=== PATIENT | male | born 1950 | race Caucasian/White ===

== ENCOUNTER 2019-07-30 15:14 | Emergency (ER) | payer MEDICARE, OTHER, SELFPAY ==
[2019-07-30] VITALS (49 sets, daily range): BP systolic 115–142; BP diastolic 48–86; PULSE 56–85; RESP 9–20; TEMP 37.6; O2SAT 79–100
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
[2019-07-30 16:04] LABS: Abs Immature Grans 0.04 k/cumm (0.0-0.09); Absolute Basophil Count 0.01 k/cumm (0.0-0.2); Absolute Eosinophil Count 0.09 k/cumm (0.0-0.7); Absolute Lymphocyte Count 1.13 k/cumm (1.2-3.4); Absolute Monocyte Count 0.45 k/cumm (0.11-0.7); Absolute Neutrophil Count 7.41 k/cumm (1.2-6.7); Basophils % 0.1; HCT 45.4 % (40.0-50.0); HGB 15.8 g/dL (13.5-17.5); Immature Grans % 0.4; Lymphocytes % 12.4; Mean Corp. HGB Concentration 34.8 g/dL (32.0-36.0); Mean Corpuscular Hemoglobin 29.9 pg (27.0-33.0); Mean Platelet Volume 9.9 fL (8.0-11.0); Monocytes % 4.9; Neutrophils % 81.2; Platelet Count 178 x1000/uL (130-400); RBC 5.28 m/cumm (4.50-6.00); White Blood Cell Count 9.13 k/cumm (4.4-10.8)
--- NOTE | 2019-07-30 16:12 | DI.CT_ITS ---
EXAM: CT HEAD CERVICAL SPINE WO CLINICAL HISTORY: trauma, distracting injury. TECHNIQUE: Multiple contiguous axial images of the head and neck were obtained. COMPARISON: HEAD WITHOUT CONTRAST from 04/29/2012 FINDINGS: Ventricles and sulci are consistent with the patient's age. No acute intracranial hemorrhage, midline shift, or mass effect is present. The ventricles are intact. The basilar cisterns are patent. The visualized paranasal sinuses are clear. The mastoid air cells are well pneumatized. The calvarium is intact. There are no acute fractures or subluxations in the cervical spine. The odontoid is intact. The lat eral masses are well aligned. There are degenerative changes present throughout the spine. The prev ertebral soft tissues are unremarkable. IMPRESSION: No acute intracranial process. No acute fracture or subluxation in the cervical spine.
[2019-07-30 16:16] LABS: Prothrombin Time 9.9 sec (9.3-11.0)
[2019-07-30 16:18] LABS: ALT 29 U/L (16-63); AST 20 U/L (15-37); Albumin 4.1 g/dL (3.4-5.0); Alkaline Phosphatase 115 U/L (46-116); Anion Gap 5.3 mmol/L (3-11); BUN 14 mg/dL (7-18); Bilirubin, Total 0.8 mg/dL (0.2-1.0); CO2 29.7 mmol/L (21.0-32.0); CREATININE 0.99 mg/dL (0.70-1.30); Calcium 8.6 mg/dL (8.5-10.1); Chloride 106 mmol/L (98-107); Glucose 108 mg/dL (70-100); Potassium 4.1 mmol/L (3.5-5.1); Sodium 141 mmol/L (136-145); Total Protein 7.9 g/dL (6.4-8.2)
[2019-07-30] MEDS: Omnipaque 350 MG/ML 100 ML BTL IJ (16:20)
--- NOTE | 2019-07-30 16:22 | DI.CT_ITS ---
EXAM: CT CHEST/ABD/PEL W CLINICAL HISTORY: trauma, left lower lateral rib and left abd pain. TECHNIQUE: Multiple contiguous axial images of the chest abdomen and pelvis were obtained. Thoracic and lumbar reconstructions were also performed. COMPARISON: No exams were available for comparison FINDINGS: The liver is normal in size. There are several cysts present. No hepatic lacerations or suspicious masses are present. The portal, superior mesenteric, and splenic veins are patent. The gallbladder is negative. There is no biliary ductal dilatation. The pancreas, spleen, and adrenal glands are un remarkable. The kidneys show normal and symmetric enhancement. No solid renal mass, obstruction or laceration is present. The urinary bladder is intact. The prostate gland is enlarged. The aorta is intact. No significant abdominal or pelvic adenopathy, ascites, pneumoperitoneum is present. There is diverticulosis of the colon. No evidence of acute diverticulitis. There is no evidence of bowel obstruction or inflammation. There is a normal appendix. There are degenerative changes seen in the lumbar spine. But no acute fracture or subluxation of the lumbar spine is present. The thoracic aorta is intact. No aneurysmal dilatation is present. The heart size is within normal limits. No pericardial effusion is present. No significant thoracic adenopathy, pleural effusion, o r pneumothorax is present. There is a 1 cm hypodense left thyroid nodule. There are dependent atele ctatic changes in the lungs. There scarring in the left lingula. There are several noncalcified pul monary nodules. The largest measures 13 mm and is located in the left upper lobe there are mildly di splaced fractures involving the posterior lateral left 9th and 10th ribs. There are degenerative changes seen in the thoracic spine. No acute fracture or subluxation in the s pine is noted. IMPRESSION: Fractures involving the left 9th and 10th ribs No evidence of acute abdominal pelvic organ injury. No evidence of a thoracic or lumbar spine fracture. Incidental findings in the chest and abdomen as described above. Follow-up is recommended for the pa tient's pulmonary nodules.
--- NOTE | 2019-07-30 16:33 | NUR.NOTE ---
Nursing Note: pt back from CT scan. resting comfortably in stretcher. no signs of distress. will continue to monitor.
[2019-07-30 17:42] LABS: Bilirubin Negative (Negative); Blood Trace-intact (Negative); Clarity Clear (Clear); Glucose Negative (Negative); Ketones Negative (Negative); Leukocyte Esterase Negative (Negative); Nitrite Negative (Negative)
[2019-07-30 17:48] LABS: Bacteria Negative HPF (Negative); C & S Indicated? No; Casts Negative LPF (Negative); Crystals Negative HPF (Negative); Epithelial Cells Negative HPF (Negative); Mucus Negative (Negative); Other Cells Negative (Negative); RBC 0-2 (0-2)
--- NOTE | 2019-07-30 18:53 | NUR.NOTE ---
Nursing Note: Report given to Angelita CHO
--- NOTE | 2019-07-30 20:44 | DI.RAD_ITS ---
EXAM: XR WRIST LT COMPLETE INDICATION: trauma, wrist pain. COMPARISON: No exams were available for comparison TECHNIQUE: 2D digital imaging was performed. FINDINGS: On the AP view of the left wrist there is a longitudinal lucency at the articular surface of the dist al left radius. This may represent a nondisplaced fracture. No other fracture or dislocation is jenniffer ntified in the left wrist. There are degenerative changes seen in the wrist particularly at the dist al radial ulnar joint and the 1st carpometacarpal joint there is generalized soft tissue swelling of the wrist. IMPRESSION: Longitudinal lucency seen at the articular surface of the distal left radius. This may represent a n ondisplaced intra-articular fracture.
[2019-07-30] MEDS: Lidocaine 5% Patch 1 PATCH TP (20:59)
[2019-07-30] MEDS: oxyCODONE 5 mg/Acetaminophen 325 mg TAB 1 TAB PO (21:51)
== END 2019-07-30 22:00 | disposition home or self-care (01) ==
PROVIDERS: Emergency Provider Student in an Organized Health Care Education/Training Program
DX: S22.42XA Multiple fractures of ribs, left side, initial encounter for closed fracture (principal); S00.81XA Abrasion of other part of head, initial encounter; V86.55XA Driver of 3- or 4- wheeled all-terrain vehicle (ATV) injured in nontraffic accident, initial encounter
CPT/HCPCS: 36415; 74177; 80053; 86850; 86900; 86901; 93005; 99285; 70450; 71260; 72125; 73110; 81003; 81015; 85025; 85610; 93010; J3490; L0172; L3908

== ENCOUNTER 2019-08-11 10:26 | Outpatient (CLI) | payer MEDICARE, OTHER, SELFPAY ==
--- NOTE | 2019-08-11 10:18 | DI.RAD_ITS ---
EXAM: XR WRIST LT COMPLETE INDICATION: f/u of left wrist injury. COMPARISON: XR WRIST LT COMPLETE from 07/30/2019 TECHNIQUE: 2D digital imaging was performed. FINDINGS: A small radiolucency projected over the distal metaphysis of the radius is again seen when compared w ith the previous study. Findings remain consistent with a nondisplaced fracture.
== END 2019-08-11 10:46 ==
PROVIDERS: Visit Provider Student in an Organized Health Care Education/Training Program
DX: S52.572A Other intraarticular fracture of lower end of left radius, initial encounter for closed fracture (principal); X58.XXXA Exposure to other specified factors, initial encounter
CPT/HCPCS: 99204; 99215; 73110

== ENCOUNTER 2025-05-31 18:09 | Emergency (ER) | payer MEDICARE, SELFPAY ==
[2025-05-31 18:12] VITALS: BP 160/70; PULSE 72; RESP 14; TEMP 37.4; O2SAT 97
--- NOTE | 2025-05-31 18:53 | W.ED.GENAD ---
Discharge Plan Disposition Patient Disposition: Home Condition: Stable Discharge Details Clinical Impression: Cellulitis Primary Care Provider: Lorri,Local ED Provider: Velma Delgado Home Meds and New Rx's Prescriptions: New doxycycline hyclate 100 mg capsule 100 mg PO BID 7 Days Qty: 14 0RF No Action acetaminophen [Mapap Extra Strength] 500 MG tablet 1 gm PO PRN PRN ibuprofen 800 MG tablet 800 mg PO TID PRN PRNQty: 21 1RF atorvastatin 20 mg Tablet 20 mg PO DAILY lidocaine [Lidoderm] 5 % adhesive patch,medicated 1 patch TP DAILY Qty: 15 0RF Rx Instructions: leave on most painful area for 12 hrs, apply only one patch per 24 hour period rosuvastatin 5 mg tablet 5 mg PO DAILY Discharge Instructions Instructions: Lyme disease, Lyme Disease Test, Cellulitis (Skin Infection), Adult ED Additional Instructions: Take antibiotic as prescribed. Monitor closely for worsening redness. If you have increased redness, fevers, inability to tolerate the antibiotic please return for reevaluation. Tick panel was sent today. If you are positive for Lyme you will need to continue antibiotics for 3 weeks. Discharge Data Discharge Physician: Velma Delgado [facility] General Date/Time Provider Initiated Documentation: 05/31/25 18:29. HPI Narrative: 75-year-old male presents for evaluation of erythema to abdomen. He thinks that he was bit by a spider several days ago. He states that the area of erythema has been increasing. There is a big red [place]. Denies any history of cellulitis or MRSA. He states that he does not feel like it could be a tick as he checks frequently for ticks and [place] He denies any fevers or chills. There are some itching to the area which he has been putting a topical cream on. Related Data Home Medications ?Medication ?Instructions ?Recorded ?Confirmed acetaminophen 500 mg tablet (Mapap 1 gm PO PRN PRN 04/16/15 05/31/25 Extra Strength) ibuprofen 800 mg tablet 800 mg PO TID PRN PRN #21 tabs 04/16/15 05/31/25 atorvastatin 20 mg tablet 20 mg PO DAILY 07/30/19 05/31/25 lidocaine 5 % topical patch 1 patch topical DAILY #15 ea 07/30/19 05/31/25 (Lidoderm) doxycycline hyclate 100 mg capsule 100 mg PO BID 7 days #14 caps 05/31/25 rosuvastatin 5 mg tablet 5 mg PO DAILY 05/31/25 05/31/25 Previous Rx's ?Medication ?Instructions ?Recorded ibuprofen 800 mg tablet 800 mg PO TID PRN PRN #21 tabs 04/16/15 lidocaine 5 % topical patch 1 patch topical DAILY #15 ea 07/30/19 (Lidoderm) doxycycline hyclate 100 mg capsule 100 mg PO BID 7 days #14 caps 05/31/25 Allergies Allergy/AdvReac Type Severity Reaction Status Date / Time No Known Allergies Allergy Unverified 05/31/25 18:17 General Stated Complaint: InsectBite BHAVIN: 4 Review of Systems Narrative: Remainder of review of systems otherwise negative except for as noted in the HPI x 5. Exam Narrative Exam Narrative: General: non-toxic, no respiratory distress, comfortable HEENT: normocephalic, atraumatic, lids and lashes normal, PERRL, EOMI, anicteric sclera, no conjunctival injection, moist oral mucosa Musculoskeletal: full range of motion of arms and legs, no tenderness to palpation. no clubbing, cyanosis, or edema Neurologic: appropriate for age, strength normal Psych: alert and oriented Skin: 10 cm circular area of erythema to left abdominal wall, no central clearing, no fluctuance, otherwise no petechiae, no lesions, warm and dry Course Vital Signs Vital signs: Vital Signs Temperature 37.4 C 05/31/25 18:12 Pulse 72 05/31/25 18:12 Respiratory Rate 14 05/31/25 18:12 Blood Pressure 160/70 H 05/31/25 18:12 Pulse Oximetry 97 05/31/25 18:12 Temperature 37.4 C 05/31/25 18:12 Temperature Source Oral 05/31/25 18:12 Pulse 72 05/31/25 18:12 Respiratory Rate 14 05/31/25 18:12 Blood Pressure 160/70 H 05/31/25 18:12 Blood Pressure Position Sitting 05/31/25 18:12 Pulse Oximetry 97 05/31/25 18:12 Oxygen Delivery Method Room Air 05/31/25 18:12 Oxygen Flow Rate 0 05/31/25 18:12 Medical Decision Making 75-year-old male presents for evaluation of increasing redness and itching to abdomen. Clinically there does appear to be a cellulitis. I am concerned that this could be secondary to Lyme disease. Patient is agreeable to have tick panel drawn. He will be started on doxycycline to treat for the cellulitis. He understands that if he test positive for Lyme he will need to extend the antibiotics for 3 weeks. Area of erythema was demarcated by nursing. He will monitor closely for signs of worsening infection. He understands indications to return. PFSH All Active Problems Cellulitis (Acute) Distal radius fracture, left (Acute 07/30/19) Social History Smoking/Tobacco Use Status: Former Tobacco Use Smoking risk assessment performed?: Yes Alcohol Intake: former Drug use: Never Substance use type: does not use Current gender identity: male
[2025-05-31] MEDS: Doxycycline Hyclate 100 MG CAP PO (19:08)
[2025-05-31 19:14] VITALS: BP 136/83; PULSE 54; O2SAT 97
[2025-05-31 19:23] VITALS: BP 136/83; PULSE 54; O2SAT 97
[2025-06-02 09:45] LABS: Lyme Ab w Rflx to Lyme Confirm Negative (Negative)
[2025-06-03 22:59] LABS: B. miyamotoi PCR Negative (Negative); Babesia divergens/MO-1 Negative (Negative); Ehrlichia muris eauclairensis Negative (Negative)
== END 2025-05-31 19:23 | disposition home or self-care (01) ==
PROVIDERS: Emergency Provider Emergency Medicine Emergency Medical Services
DX: L03.311 Cellulitis of abdominal wall (principal); W57.XXXA Bitten or stung by nonvenomous insect and other nonvenomous arthropods, initial encounter
CPT/HCPCS: 99283 ×2; 87798; 86618